=== PATIENT | male | born 1965 | race Caucasian/White ===

== ENCOUNTER 2017-08-07 05:36 | Inpatient (IN) | payer BC ==
[2017-08-02 12:22] LABS: BASOPHILS # (AUTO) 0.1 X10'3 (0-0.2); BASOPHILS % (AUTO) 1.5 % (0-1); EOSINOPHILS # (AUTO) 0.1 X10'3 (0-0.9); EOSINOPHILS % (AUTO) 1.5 % (0-6); LYMPHOCYTES # (AUTO) 2.8 X10'3 (1.1-4.8); LYMPHOCYTES % (AUTO) 32.1 % (21-51); MEAN CORPUSCULAR HEMOGLOBIN 31.7 PG (27.0-31.0); MEAN CORPUSCULAR HGB CONC 34.7 % (33.0-36.5); MEAN CORPUSCULAR VOLUME 91.2 FL (78-98); MEAN PLATELET VOLUME 7.2 FL (7.4-10.4); MONOCYTES # (AUTO) 0.6 X10'3 (0-0.9); MONOCYTES % (AUTO) 7.4 % (2-12); NEUTROPHILS # (AUTO) 5.1 X10'3 (1.8-7.7); NEUTROPHILS % (AUTO) 57.5 % (42-75); PRE OP HEMATOCRIT 46.5 % (42.0-52.0); PRE OP HEMOGLOBIN 16.1 g/dL (14.0-17.9); PRE OP PLATELET COUNT 268 X10'3 (140-440); RED CELL DISTRIBUTION WIDTH 13.2 % (11.5-14.5)
[2017-08-02 12:24] LABS: CLARITY,URINE CLEAR (Clear); COLOR,URINE YELLOW (Yellow); GLUCOSE, URINE NEGATIVE (Neg); KETONES,URINE NEGATIVE (Neg); LEUKOCYTE ESTERASE ,URINE NEGATIVE (Neg); NITRITES, URINE NEGATIVE (Neg); OCCULT BLOOD,URINE NEGATIVE (Neg); PH,URINE 5.5 (4.8-8.0); PROTEIN,URINE NEGATIVE (Neg); UROBILINOGEN,URINE 0.2 E.U/dL (0.2-1.0)
[2017-08-02 12:25] LABS: UA COLLECTION TYPE NON-SPECIFIED
[2017-08-02 12:37] LABS: ALBUMIN 3.8 G/DL (3.4-5.0); ALBUMIN/GLOBULIN RATIO 0.8 (1.1-1.5); ALKALINE PHOSPHATASE 98 IU/L (46-116); BLOOD UREA NITROGEN 17 MG/DL (7-18); BUN/CREATININE RATIO 20.7 (5.4-32.0); CALCIUM 9.1 MG/DL (8.5-10.1); CHLORIDE 103 MMOL/L (99-107); CREATININE 0.82 MG/DL (0.60-1.10); PRE OP ALT 70 U/L (30-65); PRE OP ANION GAP 11 (8-16); PRE OP AST 51 U/L (10-37); PRE OP BILIRUB, TOTAL 0.7 MG/DL (0.0-1.0); PRE OP GLUCOSE 93 MG/DL (70-104); PRE OP POTASSIUM 4.2 MMOL/L (3.4-5.1); PRE OP SODIUM 141 MMOL/L (135-145); TOTAL CARBON DIOXIDE 26.6 MMOL/L (24-32); TOTAL PROTEIN 8.3 G/DL (6.4-8.2); eGFR > 90 ML/MIN
[2017-08-07] VITALS (18 sets, daily range): BP systolic 106–144; BP diastolic 72–93
[~2017-08-07] VITALS: Ht 180.3 cm; Wt 99.8 kg
[~2017-08-07 05:36] MED LIST: AMLO10TA PO; LISI-600 PO; TRAM50TA2 PO; acetaminophen 325mg tablet PO ONE; cefazolin/dext.iso 2gm/50ml 50 ML IV ONE; famotidine 20mg tablet PO ONE; gabapentin 300mg capsule PO ONE; oxyCODONE SR 10mg (sust. release) tab PO ONE; ringers solution, lacted 1,000 ML IV SCH; tranexamic acid inj. 1,000 MG in normal saline 100ml IV soln 90 ML IV ONE
[2017-08-07] MEDS ORDERED: LIDOcaine 1% (10mg/ml) 2ml vial ONE (05:57)
[2017-08-07] MEDS ORDERED: bacitracin inj 150,000 UNIT in sodium chloride irrig. sol 3,000 ML IR ONE (06:10)
[2017-08-07] MEDS ORDERED: ROPIVAcaine 0.5% (5mg/ml) 30ml vial ONE (06:54)
[2017-08-07] MEDS ORDERED: BUPIVAcaine 0.5% inj/PF 30 ML ONE (07:01)
[2017-08-07] MEDS ORDERED: MORPHINE SULFATE/PF 0.5 MG/ML 10ML AMPUL ONE (07:01)
[2017-08-07] MEDS ORDERED: propofol 1000mg/100ml bottle 100 ML IV ONE (07:02)
[2017-08-07] MEDS ORDERED: MIDAZolam 1mg/ml 10ml vial ONE (07:11)
[2017-08-07] MEDS ORDERED: ringers solution, lacted 1,000 ML IV ONE (07:58)
[2017-08-07] MEDS ORDERED: labetalol 20mg/4ml (5mg/ml) syringe IV PRN (08:00)
[2017-08-07] MEDS ORDERED: hydrALAZINE 20mg/ml inj. IV PRN (08:00)
[2017-08-07] MEDS ORDERED: ondansetron/PF 4mg/2ml inj IV PRN ×3 (08:00→09:00)
[2017-08-07] MEDS ORDERED: meperidine/PF 50mg/ml syringe IV PRN ×2 (08:00)
[2017-08-07] MEDS ORDERED: morphine 2 MG/ML inj. syringe IV PRN ×2 (08:00)
[2017-08-07] MEDS ORDERED: meperidine/PF 25mg/ml syringe IV ONE (08:00)
[2017-08-07] MEDS ORDERED: diphenhydrAMINE 50 mg/ml inj IV PRN (08:05)
[2017-08-07] MEDS ORDERED: ceFAZolin 1000mg inj ONE (08:32)
[2017-08-07] MEDS ORDERED: acetaminophen 325mg tablet PO PRN (09:00)
[2017-08-07] MEDS ORDERED: magnesium hydroxide 30ml (MOM) UD suspension PO PRN (09:00)
[2017-08-07] MEDS ORDERED: bisacodyl 10mg suppository rectal RC PRN (09:00)
[2017-08-07] MEDS ORDERED: HYDROmorphone inj. 0.5 MG/0.5 ML DISP.SYRIN IV PRN (09:00)
[2017-08-07] MEDS ORDERED: diphenhydrAMINE 25mg capsule PO PRN ×2 (09:00)
[2017-08-07] MEDS: gabapentin 300mg capsule PO SCH ×2 (12:44→20:05)
[2017-08-07] MEDS: potassium cl 20mEq in 1/2 NS 1,000 ML IV SCH ×3 (12:45→21:40)
[2017-08-07] MEDS: acetaminophen 325mg tablet PO SCH ×2 (13:43→20:05)
[2017-08-07] MEDS: cefazolin 1gm/NS 100mL 100 ML IV SCH (15:55)
[2017-08-07] MEDS: ascorbic acid 500mg tablet PO SCH (20:05)
[2017-08-07] MEDS: celeCOXIB 100mg capsule PO SCH (20:05)
[2017-08-07] MEDS: oxyCODONE IR 5mg (immed. release) tablet PO PRN (20:05)
[2017-08-07] MEDS: sennosides 8.6mg tablet PO SCH (20:05)
[2017-08-08] MEDS: cefazolin 1gm/NS 100mL 100 ML IV SCH (00:15)
[2017-08-08 02:00] VITALS: BP 135/83
[2017-08-08] MEDS: acetaminophen 325mg tablet PO SCH ×4 (02:00→20:10)
[2017-08-08] MEDS: oxyCODONE IR 5mg (immed. release) tablet PO PRN ×4 (03:41→20:09)
[2017-08-08] MEDS: potassium cl 20mEq in 1/2 NS 1,000 ML IV SCH ×2 (05:52→19:27)
[2017-08-08 05:54] LABS: BASOPHILS % (AUTO) 0.2 % (0-1); EOSINOPHILS # (AUTO) 0.2 X10'3 (0-0.9); EOSINOPHILS % (AUTO) 1.6 % (0-6); HEMATOCRIT 38.4 % (42.0-52.0); HEMOGLOBIN 13.4 g/dl (14.0-17.9); LYMPHOCYTES # (AUTO) 2.1 X10'3 (1.1-4.8); LYMPHOCYTES % (AUTO) 17.7 % (21-51); MEAN CORPUSCULAR HEMOGLOBIN 32.2 PG (27.0-31.0); MEAN CORPUSCULAR VOLUME 91.9 FL (78-98); MEAN PLATELET VOLUME 7.3 FL (7.4-10.4); MONOCYTES # (AUTO) 0.8 X10'3 (0-0.9); MONOCYTES % (AUTO) 6.9 % (2-12); NEUTROPHILS # (AUTO) 8.6 X10'3 (1.8-7.7); NEUTROPHILS % (AUTO) 73.6 % (42-75); PLATELET COUNT 236 X10'3 (140-440); RED BLOOD COUNT 4.18 X10'6 (4.70-6.10); RED CELL DISTRIBUTION WIDTH 12.9 % (11.5-14.5); WHITE BLOOD COUNT 11.6 X10'3 (4.5-11.0)
[2017-08-08 05:59] LABS: INR 1.2 INR
[2017-08-08 06:36] LABS: ANION GAP 6 (8-16); CHLORIDE 103 MMOL/L (99-107); POTASSIUM 4.3 MMOL/L (3.5-5.1); SODIUM 137 MMOL/L (135-145)
[2017-08-08 07:05] VITALS: BP 145/95
[2017-08-08] MEDS: ascorbic acid 500mg tablet PO SCH ×2 (07:38→20:10)
[2017-08-08] MEDS: multivitamins, therapeutics tablet PO SCH (07:38)
[2017-08-08] MEDS: celeCOXIB 100mg capsule PO SCH ×2 (07:38→20:09)
[2017-08-08] MEDS: gabapentin 300mg capsule PO SCH ×3 (07:38→20:10)
[2017-08-08] MEDS: lisinopril 20mg tablet PO SCH (07:40)
[2017-08-08] MEDS: amLODIPine 5mg tablet PO SCH (07:40)
[2017-08-08 10:00] VITALS: BP 115/64
[2017-08-08] MEDS ORDERED: warfarin 10mg tablet PO ONE (10:00)
[2017-08-08 14:00] VITALS: BP 128/71
[2017-08-08 18:00] VITALS: BP 121/77
[2017-08-08] MEDS: sennosides 8.6mg tablet PO SCH (20:11)
[2017-08-08 22:00] VITALS: BP 120/74
[2017-08-09] MEDS: oxyCODONE IR 5mg (immed. release) tablet PO PRN ×2 (02:44→07:20)
[2017-08-09] MEDS: acetaminophen 325mg tablet PO SCH ×2 (02:45→07:24)
[2017-08-09] MEDS: potassium cl 20mEq in 1/2 NS 1,000 ML IV SCH (02:46)
[2017-08-09 05:00] VITALS: BP 135/81
[2017-08-09 05:17] LABS: BASOPHILS % (AUTO) 0 % (0-1); EOSINOPHILS # (AUTO) 0.3 X10'3 (0-0.9); EOSINOPHILS % (AUTO) 2.3 % (0-6); HEMATOCRIT 35.8 % (42.0-52.0); HEMOGLOBIN 12.6 g/dl (14.0-17.9); LYMPHOCYTES # (AUTO) 2.1 X10'3 (1.1-4.8); LYMPHOCYTES % (AUTO) 15.8 % (21-51); MEAN CORPUSCULAR HEMOGLOBIN 32.2 PG (27.0-31.0); MEAN CORPUSCULAR HGB CONC 35.2 % (33.0-36.5); MEAN CORPUSCULAR VOLUME 91.6 FL (78-98); MEAN PLATELET VOLUME 7.5 FL (7.4-10.4); MONOCYTES # (AUTO) 1.1 X10'3 (0-0.9); MONOCYTES % (AUTO) 8.1 % (2-12); NEUTROPHILS # (AUTO) 9.9 X10'3 (1.8-7.7); NEUTROPHILS % (AUTO) 73.8 % (42-75); PLATELET COUNT 227 X10'3 (140-440); RED BLOOD COUNT 3.91 X10'6 (4.70-6.10); RED CELL DISTRIBUTION WIDTH 13.1 % (11.5-14.5); WHITE BLOOD COUNT 13.4 X10'3 (4.5-11.0)
[2017-08-09 05:43] LABS: INR 1.4 INR; PROTHROMBIN TIME 14.4 SECONDS (9.0-12.0)
[2017-08-09] MEDS: celeCOXIB 100mg capsule PO SCH (07:17)
[2017-08-09] MEDS: gabapentin 300mg capsule PO SCH (07:18)
[2017-08-09] MEDS: ascorbic acid 500mg tablet PO SCH (07:19)
[2017-08-09] MEDS: lisinopril 20mg tablet PO SCH (07:19)
[2017-08-09] MEDS: multivitamins, therapeutics tablet PO SCH (07:19)
[2017-08-09] MEDS: amLODIPine 5mg tablet PO SCH (07:19)
[2017-08-09] MEDS ORDERED: acetaminophen 325mg tablet PO PRN (09:00)
[2017-08-09] MEDS ORDERED: ASPI-1264 PO (09:25)
[2017-08-09] MEDS ORDERED: WALKERFR (09:25)
[2017-08-09] MEDS ORDERED: warfarin 7.5mg tablet PO ONE (10:00)
== END 2017-08-09 10:55 | disposition home or self-care (01) | DRG 470 ==
LOC: PAS IN 05:36 → EDSTATUS 07:30 → ORTHO 4S 10:20
PROVIDERS: ADMIT Specialist; ATTEND Specialist
PROC: 0SRB02Z Replacement of Left Hip Joint with Metal on Polyethylene Synthetic Substitute, Open Approach (ICD-10-PCS; principal; 2017-08-07 07:19)
DX: M16.12 Unilateral primary osteoarthritis, left hip (principal); E66.9 Obesity, unspecified; D62 Acute posthemorrhagic anemia; I10 Essential (primary) hypertension; M24.852 Other specific joint derangements of left hip, not elsewhere classified; Z79.899 Other long term (current) drug therapy; Z68.30 Body mass index [BMI] 30.0-30.9, adult
CPT/HCPCS: 36415; 73502; 80051; 80053; 81003; 85025; 85610; 85730; 86885; 86900; 86901; 87070; 97034; 97110; 97116; 97162; 97530; A4565; A6253; A6449; A6455; A7000; C1758; C1776; J0690; J2250; J2274; J2704; J2795; J3490; J7030; J7120

== ENCOUNTER 2019-02-24 14:04 | Emergency (ER) | payer BC ==
[~2019-02-24] VITALS: Ht 175.3 cm; Wt 105.5 kg
[~2019-02-24 14:04] MED LIST changes: +WALKERFR; -acetaminophen 325mg tablet PO ONE; -cefazolin/dext.iso 2gm/50ml 50 ML IV ONE; -famotidine 20mg tablet PO ONE; -gabapentin 300mg capsule PO ONE; -oxyCODONE SR 10mg (sust. release) tab PO ONE; -ringers solution, lacted 1,000 ML IV SCH; -tranexamic acid inj. 1,000 MG in normal saline 100ml IV soln 90 ML IV ONE
[2019-02-24 14:13] VITALS: BP 204/121
[2019-02-24] MEDS ORDERED: HYDR-3965 PO (14:55)
[2019-02-24] MEDS ORDERED: ACYC-202 PO (14:55)
[2019-02-24] MEDS ORDERED: PRED20TA PO (14:55)
== END 2019-02-24 15:15 | disposition home or self-care (01) ==
LOC: ER 14:05
DX: B02.9 Zoster without complications (principal); Z79.899 Other long term (current) drug therapy
CPT/HCPCS: 99283